=== PATIENT | male | born 1965 | race Caucasian/White ===

== ENCOUNTER 2017-03-10 19:44 | Emergency (ER) | payer BC, OTHER ==
[~2017-03-10] VITALS: Ht 165.1 cm; Wt 70.3 kg
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
--- NOTE | 2017-03-10 19:53 | NUR ---
Dr Haro at bedside.
--- NOTE | 2017-03-10 20:03 | NUR ---
WEIGHT LOSS SALES CONSULTANT AT BEDSIDE TO DRAW BLOOD.
[2017-03-10 20:08] LABS: BASOPHILS % (AUTO) 0.5 % (0.0-2.0); EOSINOPHILS % (AUTO) 0.3 % (0.0-6.0); HEMATOCRIT 46 % (39-51); HEMOGLOBIN 16.2 g/dL (13.5-17.5); LYMPHOCYTES # (AUTO) 1.1 /CMM (0.8-4.8); LYMPHOCYTES % (AUTO) 19.6 % (20.0-44.0); MEAN CORPUSCULAR HEMOGLOBIN 33 PG (26.0-33.0); MEAN CORPUSCULAR HGB CONC 35 g/dl (31.0-36.0); MEAN CORPUSCULAR VOLUME 95 fL (80-96); MONOCYTES # (AUTO) 0.4 /CMM (0.1-1.30); NEUTROPHILS # (AUTO) 4.1 /CMM (1.8-8.9); NEUTROPHILS % (AUTO) 72.6 % (43.0-81.0); PLATELET COUNT (AUTO) 159 /CMM (150-450); RDW COEFFICIENT OF VARIATION 14.7 (11.5-15.0); RED BLOOD CELL COUNT(AUTO) 4.85 MIL/uL (4.5-6.0); WHITE BLOOD COUNT (AUTO) 5.6 K/uL (4.3-11.0)
[2017-03-10 20:29] LABS: ALANINE AMINOTRANSFERASE 140 U/L (12-78); ALBUMIN 3.8 g/dL (3.4-5.0); ALCOHOL, BLOOD 440 mg/dL (0-0); ALKALINE PHOSPHATASE 66 U/L (46-116); ASPARTATE AMINOTRANSFERASE 224 U/L (15-37); BILIRUBIN,DIRECT 0.3 mg/dL (0.0-0.2); CARBON DIOXIDE 28 mmol/L (21-32); CHLORIDE 99 mmol/L (98-107); CREATININE 0.6 mg/dL (0.6-1.3); GLUCOSE 178 mg/dL (74-106); POTASSIUM 3.6 mmol/L (3.5-5.1); SODIUM SERUM 138 mmol/L (136-145); TOTAL PROTEIN, SERUM 7.5 g/dL (6.4-8.2); UREA NITROGEN, BLOOD 8 mg/dL (7-18)
[2017-03-10 20:37] LABS: ACETAMINOPHEN < 2 ug/ml (10-30); SALICYLATE < 2.8 mg/dL (2.8-20.0)
[2017-03-10 20:40] LABS: APPEARANCE,URINE Clear (CLEAR); BILIRUBIN,URINE Negative (NEGATIVE); BLOOD, URINE Trace-intact Ery/uL (NEGATIVE); COLOR,URINE Light yellow (YELLOW); KETONES,URINE Negative (NEGATIVE); LEUKOCYTE ESTERASE ,URINE Negative (NEGATIVE); NITRITE, URINE Negative (NEGATIVE); PH,URINE 5.5 (5.0-8.0); PROTEIN,URINE Negative (NEGATIVE); UGLUCOSE Negative (NEGATIVE); UROBILINOGEN,URINE 0.2 EU/dL (0.2)
[2017-03-10 21:12] LABS: RBC,URINE 2-3/HPF /HPF (0-2); WBC,URINE 1-2/HPF /HPF (0-3)
[2017-03-10 21:13] LABS: BACTERIA,URINE None seen /HPF (None Seen); MUCUS,URINE Rare /LPF (None Seen); SQUAMOUS EPITHELIAL CELL,UR Rare /HPF (None Seen)
--- NOTE | 2017-03-10 21:45 | NUR ---
SISTER AT BEDSIDE TALKING TO PATIENT.
--- NOTE | 2017-03-11 01:06 | NUR ---
PATIENT REMAINED ALERT AND RESPONSIVE. VSS. NAD NOTED. SAFETY MAINTAINED.
--- NOTE | 2017-03-11 05:47 | NUR ---
POWERHOUSE MECHANIC AT BEDSIDE TO REDRAW BLOOD ALCOHOL AT THIS TIME.
[2017-03-11] MEDS ORDERED: clonazePAM 1 MG TABLET PO ONE (06:00)
[2017-03-11] MEDS ORDERED: clonazePAM 1 MG TABLET ONE (07:53)
--- NOTE | 2017-03-11 08:55 | NUR ---
PT PROVIDED WITH FOOD REQUESTED.
--- NOTE | 2017-03-11 11:59 | NUR ---
CALLED FOR FOOD TRAY
--- NOTE | 2017-03-11 13:30 | NUR ---
Pt. ambulatory with a steady gait.
--- NOTE | 2017-03-11 13:45 | NUR ---
Patient discharged to home in stable condition. Written and verbal after care instructions given. Patient verbalizes understanding of instruction.
--- NOTE | 2017-03-11 13:45 | NUR ---
PT ACCOMPANIED BY SISTER KIARRA FOR DC TO HOME.
[2017-03-11 14:12] VITALS: BP 123/88
== END 2017-03-11 14:13 | disposition home or self-care (01) ==
LOC: ER 19:45
DX: R45.851 Suicidal ideations (principal); F32.9 Major depressive disorder, single episode, unspecified; R79.89 Other specified abnormal findings of blood chemistry; F10.10 Alcohol abuse, uncomplicated; F43.10 Post-traumatic stress disorder, unspecified
CPT/HCPCS: 36415 ×2; 80048; 80076; 80305; 80329; 81001; 85025; 99284; A4606; G0480 ×3; Z7610; 81000-TC

== ENCOUNTER 2017-11-27 21:04 | Emergency (ER) | payer SELFPAY ==
[~2017-11-27] VITALS: Ht 165.1 cm; Wt 67.6 kg
[2017-11-27 22:05] VITALS: BP 121/96
== END 2017-11-28 00:40 | disposition home or self-care (01) ==
LOC: ER 21:09
DX: R60.0 Localized edema (principal); F41.9 Anxiety disorder, unspecified; F32.9 Major depressive disorder, single episode, unspecified; F43.10 Post-traumatic stress disorder, unspecified; Z90.89 Acquired absence of other organs
CPT/HCPCS: 93970; 99284; A4606; Z7610

== ENCOUNTER 2018-08-06 21:06 | Emergency (ER) | payer OTHER ==
[~2018-08-06] VITALS: Ht 165.1 cm; Wt 68.0 kg
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
--- NOTE | 2018-08-06 22:16 | NUR ---
AT THE BED SIDE
--- NOTE | 2018-08-06 22:32 | NUR ---
CALLED RADIOLOGY FOR X.RAY AND CT
--- NOTE | 2018-08-06 22:40 | NUR ---
LEFT FOR CT
[2018-08-06 23:43] VITALS: BP 107/69
--- NOTE | 2018-08-06 23:43 | NUR ---
Patient discharged to home in stable condition. RX & Written and verbal after care instructions given. Patient verbalizes understanding of instruction.
== END 2018-08-06 23:44 | disposition home or self-care (01) ==
LOC: ER 21:07
DX: R42 Dizziness and giddiness (principal); R07.89 Other chest pain; F32.9 Major depressive disorder, single episode, unspecified; F43.10 Post-traumatic stress disorder, unspecified; V49.69XA Unspecified car occupant injured in collision with other motor vehicles in traffic accident, initial encounter; Y93.89 Activity, other specified; Y92.413 State road as the place of occurrence of the external cause; Y99.8 Other external cause status
CPT/HCPCS: 70450-TC; 71100-TC

== ENCOUNTER 2020-03-20 23:56 | Inpatient (IN) | payer OTHER ==
[~2020-03-20] VITALS: Ht 167.6 cm; Wt 77.1 kg
[2020-03-21] VITALS (9 sets, daily range): BP systolic 132–152; BP diastolic 69–91
[2020-03-21] MEDS ORDERED: ONDANSETRON HCL/PF 4 MG/2 ML VIAL IVP ONE (00:30)
[2020-03-21] MEDS ORDERED: IV NS 0.9% 1,000 ML BAG IV ONE (00:30)
[2020-03-21] MEDS ORDERED: ONDANSETRON HCL/PF 4 MG/2 ML VIAL ONE ×2 (00:32→01:46)
[2020-03-21 00:48] LABS: BASOPHILS # (AUTO) 0.1 /CMM (0.0-0.2); BASOPHILS % (AUTO) 0.5 % (0.0-2.0); HEMATOCRIT 47 % (39-51); HEMOGLOBIN 15.1 g/dL (13.5-17.5); LYMPHOCYTES # (AUTO) 0.2 /CMM (0.8-4.8); LYMPHOCYTES % (AUTO) 1.9 % (20.0-44.0); MEAN CORPUSCULAR HGB CONC 32 g/dl (31.0-36.0); MEAN CORPUSCULAR VOLUME 89 fL (80-96); MONOCYTES # (AUTO) 0.6 /CMM (0.1-1.30); MONOCYTES % (AUTO) 5.3 % (2.0-12.0); NEUTROPHILS # (AUTO) 10.6 /CMM (1.8-8.9); NEUTROPHILS % (AUTO) 92.3 % (43.0-81.0); PLATELET COUNT (AUTO) 177 /CMM (150-450); RED BLOOD CELL COUNT(AUTO) 5.28 MIL/uL (4.5-6.0); WHITE BLOOD COUNT (AUTO) 11.5 K/uL (4.3-11.0)
[2020-03-21] MEDS ORDERED: METOCLOPRAMIDE HCL 10 MG/2 ML VIAL ONE (00:55)
[2020-03-21] MEDS ORDERED: METOCLOPRAMIDE HCL 10 MG/2 ML VIAL IV ONE (01:00)
[2020-03-21 01:03] LABS: BILIRUBIN,DIRECT 0.4 mg/dL (0.0-0.2); BILIRUBIN,TOTAL 0.8 mg/dL (0.2-1.0); CREATININE 1.6 mg/dL (0.6-1.3); TOTAL PROTEIN, SERUM 8.5 g/dL (6.4-8.2)
[2020-03-21 01:21] LABS: POTASSIUM 2.6 mmol/L (3.5-5.1)
[2020-03-21] MEDS ORDERED: LIDOCAINE 2% JEL UROJET 10 ML MM ONE (01:28)
[2020-03-21] MEDS ORDERED: POTASSIUM CL. PREMIX PERIPHER. 200 ML ONE (01:47)
[2020-03-21] MEDS: POTASSIUM CL. PREMIX PERIPHER. 50 ML IV SCH ×6 (02:00→23:14)
[2020-03-21] MEDS ORDERED: ONDANSETRON HCL/PF 4 MG/2 ML VIAL IV ONE (02:00)
[2020-03-21] MEDS ORDERED: IV NS 0.9% 1,000 ML IV ONE ×2 (02:00→08:30)
[2020-03-21 02:04] LABS: BILIRUBIN,URINE NEGATIVE (NEGATIVE); COLOR,URINE YELLOW (YELLOW); LEUKOCYTE ESTERASE ,URINE NEGATIVE (NEGATIVE); NITRITE, URINE NEGATIVE (NEGATIVE); PROTEIN,URINE 100 mg/dl (NEGATIVE); UGLUCOSE >=1000 mg/dL (NEGATIVE); UROBILINOGEN,URINE 0.2 EU/dL (0.2)
[2020-03-21 02:16] LABS: BACTERIA,URINE None seen /HPF (None Seen); SQUAMOUS EPITHELIAL CELL,UR Few /HPF (None Seen); URINE AMORPHOUS URATE Few /HPF (None Seen); WBC,URINE 0-2 /HPF (0-3)
[2020-03-21 02:32] LABS: ABG BASE EXCESS -18.5 mmol/L; ABG OXYGEN SATURATION 96.7 % (92.0-98.5); ABG PCO2 22.3 mmHg (35.0-45.0); ABG PH 7.175 (7.350-7.450); COHb 0.7 % (0.5-1.5); MetHb 0.6 % (0.0-1.5); O2Hb 95.4 % (94.0-97.0); SITE, ABG Right Radial; VENT MODE, BG Room Air
[2020-03-21] MEDS ORDERED: MAG HYDROX/AL HYDROX/SIMETH 30 ML UDC PO PRN (06:00)
[2020-03-21] MEDS ORDERED: POTASSIUM CHLORIDE 20 MEQ TAB.PRT.SR PO ONE (06:00)
[2020-03-21] MEDS ORDERED: MAGNESIUM HYDROXIDE 30 ML UDC PO PRN (06:00)
[2020-03-21 06:45] LABS: BASOPHILS % (AUTO) 0.3 % (0.0-2.0); HEMATOCRIT 40 % (39-51); HEMOGLOBIN 13.2 g/dL (13.5-17.5); LYMPHOCYTES # (AUTO) 0.2 /CMM (0.8-4.8); LYMPHOCYTES % (AUTO) 2.5 % (20.0-44.0); MEAN CORPUSCULAR HGB CONC 33 g/dl (31.0-36.0); MEAN CORPUSCULAR VOLUME 88 fL (80-96); MONOCYTES # (AUTO) 0.9 /CMM (0.1-1.30); MONOCYTES % (AUTO) 9.5 % (2.0-12.0); NEUTROPHILS # (AUTO) 7.9 /CMM (1.8-8.9); NEUTROPHILS % (AUTO) 87.7 % (43.0-81.0); PLATELET COUNT (AUTO) 113 /CMM (150-450); RED BLOOD CELL COUNT(AUTO) 4.55 MIL/uL (4.5-6.0)
[2020-03-21 07:18] LABS: ALBUMIN 3.4 g/dL (3.4-5.0); BILIRUBIN,DIRECT 0.6 mg/dL (0.0-0.2); CALCIUM, SERUM 7.5 mg/dL (8.5-10.1); CREATININE 0.9 mg/dL (0.6-1.3); MAGNESIUM 2.5 mg/dL (1.8-2.4); PHOSPHORUS 1.5 mg/dL (2.5-4.9); POTASSIUM 3.5 mmol/L (3.5-5.1); TOTAL PROTEIN, SERUM 7.2 g/dL (6.4-8.2)
[2020-03-21] MEDS ORDERED: ESCI10TA PO (08:02)
[2020-03-21] MEDS ORDERED: DIAZ2TAB3 PO (08:02)
[2020-03-21] MEDS ORDERED: IBUP-1957 PO (08:02)
[2020-03-21] MEDS: MULTIVITAMINS,THERAGRAN 1 UDTAB TABLET PO SCH (08:48)
[2020-03-21] MEDS: THIAMINE HCL 100 MG TABLET PO SCH (08:49)
[2020-03-21] MEDS: LORAZEPAM INJ 2 MG/ML VIAL IV PRN ×2 (08:49→18:06)
[2020-03-21] MEDS: FOLIC ACID 1 MG TABLET PO SCH (08:49)
[2020-03-21] MEDS ORDERED: DEXTROSE 50%-WATER 50 ML DISP.SYRIN IV PRN (09:00)
[2020-03-21] MEDS ORDERED: *INSULIN REGULAR(HUMULIN R)HUM 100 UNIT/ML VIAL SQ PRN (09:00)
[2020-03-21] MEDS ORDERED: IV NS 0.9% 1,000 ML IV PRN (09:00)
[2020-03-21] MEDS: INSULIN REGULAR, HUMAN 100 UNIT/ML 3 ML VIAL SQ PRN ×2 (09:50→13:10)
[2020-03-21] MEDS: BLOOD SUGAR DIAGNOSTIC 1 EACH STRIP IN SCH ×9 (09:51→23:59)
[2020-03-21] MEDS ORDERED: Sodium Phosphate 15 MMOL in IV NS 0.9% 245 ML IV SCH (11:30)
[2020-03-21] MEDS: ONDANSETRON HCL/PF 4 MG/2 ML VIAL IVP PRN (11:58)
[2020-03-21] MEDS ORDERED: IV D5/ 0.9% NACL 1,000 ML IV PRN (14:30)
[2020-03-21] MEDS ORDERED: MISCELLANEOUS MED 1 EA EA XX ONE (14:30)
[2020-03-21] MEDS ORDERED: INSULIN REGULAR, HUMAN 100 UNIT in IV NS 0.9% 99 ML IV PRN ×2 (14:30)
[2020-03-21] MEDS ORDERED: POTASSIUM PHOSPHATE MM 15 MMOL in IV NS 0.9% 250 ML IV SCH (14:30)
[2020-03-21 15:36] LABS: CALCIUM, SERUM 7.7 mg/dL (8.5-10.1); POTASSIUM 2.9 mmol/L (3.5-5.1)
[2020-03-21] MEDS: ESCITALOPRAM OXALATE (10 MG) 10 MG TABLET PO SCH (16:03)
[2020-03-21] MEDS: HYDROCODONE/APAP 5/325MG TABLET PO PRN (19:30)
[2020-03-21 20:39] LABS: ALBUMIN 3.1 g/dL (3.4-5.0); CALCIUM, SERUM 7.5 mg/dL (8.5-10.1); CREATININE 1.1 mg/dL (0.6-1.3); POTASSIUM 2.9 mmol/L (3.5-5.1); TOTAL PROTEIN, SERUM 6.4 g/dL (6.4-8.2)
[2020-03-21] MEDS: ATORVASTATIN 40 MG TABLET PO SCH (22:24)
[2020-03-21] MEDS: Potassium Chloride 40 MEQ in IV D5/ 0.9% NACL 1,000 ML IV PRN (23:08)
[2020-03-22] VITALS (16 sets, daily range): BP systolic 116–143; BP diastolic 66–83
[2020-03-22 00:16] LABS: CALCIUM, SERUM 7.4 mg/dL (8.5-10.1); POTASSIUM 3.2 mmol/L (3.5-5.1)
[2020-03-22] MEDS: POTASSIUM CL. PREMIX PERIPHER. 50 ML IV SCH ×3 (00:19→23:45)
[2020-03-22] MEDS: BLOOD SUGAR DIAGNOSTIC 1 EACH STRIP IN SCH ×22 (01:03→22:51)
[2020-03-22 04:33] LABS: BASOPHILS % (AUTO) 0.2 % (0.0-2.0); HEMATOCRIT 35 % (39-51); HEMOGLOBIN 11.9 g/dL (13.5-17.5); LYMPHOCYTES # (AUTO) 0.4 /CMM (0.8-4.8); LYMPHOCYTES % (AUTO) 6.4 % (20.0-44.0); MEAN CORPUSCULAR HGB CONC 34 g/dl (31.0-36.0); MEAN CORPUSCULAR VOLUME 85 fL (80-96); MONOCYTES # (AUTO) 0.6 /CMM (0.1-1.30); MONOCYTES % (AUTO) 11.2 % (2.0-12.0); NEUTROPHILS # (AUTO) 4.5 /CMM (1.8-8.9); NEUTROPHILS % (AUTO) 82.2 % (43.0-81.0); PLATELET COUNT (AUTO) 75 /CMM (150-450); RED BLOOD CELL COUNT(AUTO) 4.16 MIL/uL (4.5-6.0); WHITE BLOOD COUNT (AUTO) 5.5 K/uL (4.3-11.0)
[2020-03-22 04:55] LABS: CALCIUM, SERUM 7.8 mg/dL (8.5-10.1); POTASSIUM 3.2 mmol/L (3.5-5.1)
[2020-03-22 04:58] LABS: PHOSPHORUS 0.6 mg/dL (2.5-4.9)
[2020-03-22 06:15] LABS: BAND % (MANUAL) 5 % (0.0-5.0); NEUTROPHILS % (MANUAL) 75 (42-76)
[2020-03-22 06:16] LABS: LYMPHOCYTES % (MANUAL) 7 % (16-48); MONOCYTES % (MANUAL) 13 % (0-11.0)
[2020-03-22] MEDS ORDERED: POTASSIUM PHOSPHATE MM 15 MMOL in IV NS 0.9% 250 ML IV SCH ×2 (07:00→21:00)
[2020-03-22] MEDS ORDERED: POTASSIUM PHOSPHATE MM 7.5 MMOL in IV NS 0.9% 100 ML IV SCH (08:30)
[2020-03-22] MEDS: POTASSIUM PHOSPHATE MM 7.5 MMOL in IV NS 0.9% 100 ML IV SCH ×3 (08:56→21:25)
[2020-03-22] MEDS: THIAMINE HCL 100 MG TABLET PO SCH (09:19)
[2020-03-22] MEDS: LORAZEPAM INJ 2 MG/ML VIAL IV PRN ×3 (09:19→21:25)
[2020-03-22] MEDS: MULTIVITAMINS,THERAGRAN 1 UDTAB TABLET PO SCH (09:19)
[2020-03-22] MEDS: FOLIC ACID 1 MG TABLET PO SCH (09:19)
[2020-03-22] MEDS: ESCITALOPRAM OXALATE (10 MG) 10 MG TABLET PO SCH (09:19)
[2020-03-22 09:54] LABS: CALCIUM, SERUM 7.8 mg/dL (8.5-10.1); CREATININE 0.9 mg/dL (0.6-1.3); POTASSIUM 3.2 mmol/L (3.5-5.1)
[2020-03-22] MEDS: Potassium Chloride 40 MEQ in IV D5/ 0.9% NACL 1,000 ML IV PRN ×2 (11:20→21:43)
[2020-03-22] MEDS ORDERED: MENTHOL/CETYLPYRD (CEPACOL) 1 LOZ LOZENGE PO PRN (11:30)
[2020-03-22 16:04] LABS: CALCIUM, SERUM 7.8 mg/dL (8.5-10.1); POTASSIUM 3.3 mmol/L (3.5-5.1)
[2020-03-22 17:24] LABS: CALCIUM, SERUM 7.5 mg/dL (8.5-10.1); CREATININE 0.9 mg/dL (0.6-1.3); POTASSIUM 2.9 mmol/L (3.5-5.1)
[2020-03-22] MEDS: ARIPIPRAZOLE 5 MG TABLET PO SCH (21:26)
[2020-03-22] MEDS: ATORVASTATIN 40 MG TABLET PO SCH (21:26)
[2020-03-22 21:44] LABS: CALCIUM, SERUM 7.7 mg/dL (8.5-10.1); CREATININE 0.8 mg/dL (0.6-1.3)
[2020-03-22 21:52] LABS: POTASSIUM 2.7 mmol/L (3.5-5.1)
[2020-03-22] MEDS ORDERED: DEXTROSE 50%-WATER 50 ML DISP.SYRIN IV PRN (23:30)
[2020-03-22] MEDS: INSULIN GLARGINE, 100 UNIT/ML CARTRIDGE SQ SCH (23:43)
[2020-03-23] VITALS (9 sets, daily range): BP systolic 120–146; BP diastolic 73–95
[2020-03-23] MEDS: POTASSIUM PHOSPHATE MM 7.5 MMOL in IV NS 0.9% 100 ML IV SCH (00:48)
[2020-03-23] MEDS: MORPHINE SULFATE INJ 2 MG/ML DISP.SYRIN IV PRN (01:00)
[2020-03-23] MEDS: POTASSIUM CL. PREMIX PERIPHER. 50 ML IV SCH (01:07)
[2020-03-23] MEDS: LORAZEPAM INJ 2 MG/ML VIAL IV PRN ×3 (05:58→21:50)
[2020-03-23 06:45] LABS: BASOPHILS % (AUTO) 0.2 % (0.0-2.0); EOSINOPHILS % (AUTO) 0.2 % (0.0-6.0); HEMATOCRIT 36 % (39-51); HEMOGLOBIN 12.3 g/dL (13.5-17.5); LYMPHOCYTES # (AUTO) 0.5 /CMM (0.8-4.8); LYMPHOCYTES % (AUTO) 9.4 % (20.0-44.0); MEAN CORPUSCULAR HGB CONC 34 g/dl (31.0-36.0); MEAN CORPUSCULAR VOLUME 85 fL (80-96); MONOCYTES # (AUTO) 0.5 /CMM (0.1-1.30); MONOCYTES % (AUTO) 10.8 % (2.0-12.0); NEUTROPHILS % (AUTO) 79.4 % (43.0-81.0); PLATELET COUNT (AUTO) 65 /CMM (150-450); RED BLOOD CELL COUNT(AUTO) 4.25 MIL/uL (4.5-6.0)
[2020-03-23 07:15] LABS: CALCIUM, SERUM 7.8 mg/dL (8.5-10.1); CREATININE 0.8 mg/dL (0.6-1.3); MAGNESIUM 1.9 mg/dL (1.8-2.4); PHOSPHORUS 1.5 mg/dL (2.5-4.9); POTASSIUM 2.9 mmol/L (3.5-5.1)
[2020-03-23] MEDS: THIAMINE HCL 100 MG TABLET PO SCH (08:11)
[2020-03-23] MEDS: ESCITALOPRAM OXALATE (10 MG) 10 MG TABLET PO SCH (08:11)
[2020-03-23] MEDS: FOLIC ACID 1 MG TABLET PO SCH (08:11)
[2020-03-23] MEDS: BLOOD SUGAR DIAGNOSTIC 1 EACH STRIP VI SCH ×4 (08:11→22:08)
[2020-03-23] MEDS: MULTIVITAMINS,THERAGRAN 1 UDTAB TABLET PO SCH (08:11)
[2020-03-23] MEDS: ONDANSETRON HCL/PF 4 MG/2 ML VIAL IVP PRN ×2 (08:12→14:36)
[2020-03-23] MEDS: INSULIN REGULAR, HUMAN 100 UNIT/ML 3 ML VIAL SQ PRN ×3 (08:38→17:38)
[2020-03-23] MEDS: Potassium Chloride 40 MEQ in IV D5/ 0.9% NACL 1,000 ML IV PRN (10:53)
[2020-03-23] MEDS ORDERED: POTASSIUM CHLORIDE 20 MEQ POWDER PACKET PO ONE (12:30)
[2020-03-23] MEDS: IV NS 0.9% 1,000 ML IV PRN (12:30)
[2020-03-23] MEDS ORDERED: NEUTRA PHOS 1 POWD.PACKET PO ONE (12:30)
[2020-03-23] MEDS: CHLORDIAZEPOXIDE HCL 25 MG CAPSULE PO SCH ×2 (13:11→21:47)
[2020-03-23] MEDS: ARIPIPRAZOLE 5 MG TABLET PO SCH (21:47)
[2020-03-23] MEDS: ATORVASTATIN 40 MG TABLET PO SCH (21:47)
[2020-03-23] MEDS: INSULIN GLARGINE, 100 UNIT/ML CARTRIDGE SQ SCH (21:52)
[2020-03-23] MEDS: *INSULIN REGULAR(HUMULIN R)HUM 100 UNIT/ML VIAL SQ PRN (21:53)
[2020-03-24] MEDS: LORAZEPAM INJ 2 MG/ML VIAL IV PRN ×2 (02:23→14:30)
[2020-03-24 04:00] VITALS: BP 132/85
[2020-03-24] MEDS: CHLORDIAZEPOXIDE HCL 25 MG CAPSULE PO SCH ×3 (04:13→21:31)
[2020-03-24 06:37] LABS: BASOPHILS % (AUTO) 0.1 % (0.0-2.0); EOSINOPHILS % (AUTO) 1.3 % (0.0-6.0); HEMATOCRIT 40 % (39-51); HEMOGLOBIN 13.3 g/dL (13.5-17.5); LYMPHOCYTES # (AUTO) 0.6 /CMM (0.8-4.8); LYMPHOCYTES % (AUTO) 10.5 % (20.0-44.0); MEAN CORPUSCULAR HGB CONC 34 g/dl (31.0-36.0); MEAN CORPUSCULAR VOLUME 86 fL (80-96); MONOCYTES # (AUTO) 0.7 /CMM (0.1-1.30); MONOCYTES % (AUTO) 12.4 % (2.0-12.0); NEUTROPHILS # (AUTO) 4.2 /CMM (1.8-8.9); NEUTROPHILS % (AUTO) 75.7 % (43.0-81.0); PLATELET COUNT (AUTO) 84 /CMM (150-450); RED BLOOD CELL COUNT(AUTO) 4.61 MIL/uL (4.5-6.0); WHITE BLOOD COUNT (AUTO) 5.5 K/uL (4.3-11.0)
[2020-03-24 06:57] LABS: CALCIUM, SERUM 8.3 mg/dL (8.5-10.1); CREATININE 0.6 mg/dL (0.6-1.3); MAGNESIUM 1.9 mg/dL (1.8-2.4); PHOSPHORUS 1.7 mg/dL (2.5-4.9)
[2020-03-24 07:06] LABS: POTASSIUM 2.5 mmol/L (3.5-5.1)
[2020-03-24] MEDS: BLOOD SUGAR DIAGNOSTIC 1 EACH STRIP VI SCH ×4 (07:30→22:17)
[2020-03-24 08:00] VITALS: BP 139/92
[2020-03-24] MEDS: ESCITALOPRAM OXALATE (10 MG) 10 MG TABLET PO SCH (08:31)
[2020-03-24] MEDS: THIAMINE HCL 100 MG TABLET PO SCH (08:31)
[2020-03-24] MEDS: MULTIVITAMINS,THERAGRAN 1 UDTAB TABLET PO SCH (08:31)
[2020-03-24] MEDS: FOLIC ACID 1 MG TABLET PO SCH (08:31)
[2020-03-24] MEDS: POTASSIUM PHOSPHATE MM 7.5 MMOL in IV NS 0.9% 100 ML IV SCH ×2 (08:32→11:51)
[2020-03-24] MEDS: IV NS 0.9% 1,000 ML IV PRN (08:33)
[2020-03-24] MEDS: INSULIN REGULAR, HUMAN 100 UNIT/ML 3 ML VIAL SQ PRN (09:00)
[2020-03-24] MEDS ORDERED: ATOR40TA PO (10:20)
[2020-03-24] MEDS ORDERED: ARIP5TAB10 PO (10:20)
[2020-03-24] MEDS: *INSULIN REGULAR(HUMULIN R)HUM 100 UNIT/ML VIAL SQ PRN ×3 (14:31→22:22)
[2020-03-24 14:59] VITALS: BP 134/92
[2020-03-24 20:00] VITALS: BP 143/86
[2020-03-24] MEDS: ATORVASTATIN 40 MG TABLET PO SCH (21:32)
[2020-03-24] MEDS: ARIPIPRAZOLE 5 MG TABLET PO SCH (21:32)
[2020-03-24] MEDS: INSULIN GLARGINE, 100 UNIT/ML CARTRIDGE SQ SCH (22:21)
[2020-03-25] MEDS: IV NS 0.9% 1,000 ML IV PRN ×2 (00:23→12:52)
[2020-03-25] MEDS: LORAZEPAM INJ 2 MG/ML VIAL IV PRN (00:25)
[2020-03-25 04:00] VITALS: BP 113/71
[2020-03-25] MEDS: CHLORDIAZEPOXIDE HCL 25 MG CAPSULE PO SCH ×3 (05:51→21:46)
[2020-03-25 08:00] VITALS: BP 140/87
[2020-03-25] MEDS: THIAMINE HCL 100 MG TABLET PO SCH (08:47)
[2020-03-25] MEDS: BLOOD SUGAR DIAGNOSTIC 1 EACH STRIP VI SCH ×4 (08:47→21:46)
[2020-03-25] MEDS: MULTIVITAMINS,THERAGRAN 1 UDTAB TABLET PO SCH (08:47)
[2020-03-25] MEDS: ESCITALOPRAM OXALATE (10 MG) 10 MG TABLET PO SCH (08:47)
[2020-03-25] MEDS: FOLIC ACID 1 MG TABLET PO SCH (08:47)
[2020-03-25] MEDS: INSULIN REGULAR, HUMAN 100 UNIT/ML 3 ML VIAL SQ PRN (08:54)
[2020-03-25] MEDS: *INSULIN REGULAR(HUMULIN R)HUM 100 UNIT/ML VIAL SQ PRN ×3 (12:48→22:04)
[2020-03-25] MEDS: ONDANSETRON HCL/PF 4 MG/2 ML VIAL IVP PRN (13:28)
[2020-03-25 15:47] LABS: CALCIUM, SERUM 8.3 mg/dL (8.5-10.1); CREATININE 0.7 mg/dL (0.6-1.3)
[2020-03-25 15:56] LABS: POTASSIUM 2.3 mmol/L (3.5-5.1)
[2020-03-25 16:00] VITALS: BP 129/91
[2020-03-25] MEDS ORDERED: POTASSIUM CHLORIDE 20 MEQ TAB.PRT.SR PO ONE (17:00)
[2020-03-25 20:00] VITALS: BP 127/96
[2020-03-25] MEDS: ATORVASTATIN 40 MG TABLET PO SCH (21:46)
[2020-03-25] MEDS: ARIPIPRAZOLE 5 MG TABLET PO SCH (21:46)
[2020-03-25] MEDS: INSULIN GLARGINE, 100 UNIT/ML CARTRIDGE SQ SCH (22:03)
[2020-03-26] MEDS: HYDROCODONE/APAP 5/325MG TABLET PO PRN (01:22)
[2020-03-26] MEDS: CHLORDIAZEPOXIDE HCL 25 MG CAPSULE PO SCH ×3 (05:49→21:53)
[2020-03-26] MEDS: INSULIN REGULAR, HUMAN 100 UNIT/ML 3 ML VIAL SQ PRN (06:44)
[2020-03-26] MEDS: BLOOD SUGAR DIAGNOSTIC 1 EACH STRIP VI SCH ×4 (06:45→23:15)
[2020-03-26 08:00] VITALS: BP 119/82
[2020-03-26] MEDS: ACETAMINOPHEN 325 MG TABLET PO PRN ×2 (08:23→17:50)
[2020-03-26] MEDS: ESCITALOPRAM OXALATE (10 MG) 10 MG TABLET PO SCH (08:23)
[2020-03-26] MEDS: MULTIVITAMINS,THERAGRAN 1 UDTAB TABLET PO SCH (08:23)
[2020-03-26] MEDS: THIAMINE HCL 100 MG TABLET PO SCH (08:23)
[2020-03-26] MEDS: FOLIC ACID 1 MG TABLET PO SCH (08:23)
[2020-03-26 10:35] LABS: CALCIUM, SERUM 7.9 mg/dL (8.5-10.1); CREATININE 0.7 mg/dL (0.6-1.3)
[2020-03-26 10:42] LABS: POTASSIUM 2.8 mmol/L (3.5-5.1)
[2020-03-26 12:00] VITALS: BP 105/75
[2020-03-26] MEDS ORDERED: POTASSIUM CHLORIDE 20 MEQ TAB.PRT.SR PO ONE (12:00)
[2020-03-26] MEDS: *INSULIN REGULAR(HUMULIN R)HUM 100 UNIT/ML VIAL SQ PRN ×3 (13:17→23:30)
[2020-03-26 16:00] VITALS: BP 106/65
[2020-03-26 20:30] VITALS: BP 109/77
[2020-03-26] MEDS: ATORVASTATIN 40 MG TABLET PO SCH (21:53)
[2020-03-26] MEDS: ARIPIPRAZOLE 5 MG TABLET PO SCH (21:53)
[2020-03-26] MEDS: INSULIN GLARGINE, 100 UNIT/ML CARTRIDGE SQ SCH (23:24)
[2020-03-27] MEDS: ACETAMINOPHEN 325 MG TABLET PO PRN ×2 (02:30→16:05)
[2020-03-27] MEDS: CHLORDIAZEPOXIDE HCL 25 MG CAPSULE PO SCH ×3 (05:32→22:14)
[2020-03-27] MEDS: BLOOD SUGAR DIAGNOSTIC 1 EACH STRIP VI SCH ×4 (06:44→22:15)
[2020-03-27 07:39] LABS: BASOPHILS % (AUTO) 0.3 % (0.0-2.0); EOSINOPHILS % (AUTO) 0.4 % (0.0-6.0); HEMATOCRIT 40 % (39-51); HEMOGLOBIN 13.3 g/dL (13.5-17.5); LYMPHOCYTES # (AUTO) 0.7 /CMM (0.8-4.8); LYMPHOCYTES % (AUTO) 7.6 % (20.0-44.0); MEAN CORPUSCULAR HGB CONC 34 g/dl (31.0-36.0); MEAN CORPUSCULAR VOLUME 85 fL (80-96); MONOCYTES % (AUTO) 21.3 % (2.0-12.0); NEUTROPHILS # (AUTO) 6.6 /CMM (1.8-8.9); NEUTROPHILS % (AUTO) 70.4 % (43.0-81.0); PLATELET COUNT (AUTO) 146 /CMM (150-450); RED BLOOD CELL COUNT(AUTO) 4.66 MIL/uL (4.5-6.0); WHITE BLOOD COUNT (AUTO) 9.4 K/uL (4.3-11.0)
[2020-03-27] MEDS: *INSULIN REGULAR(HUMULIN R)HUM 100 UNIT/ML VIAL SQ PRN ×2 (07:58→22:21)
[2020-03-27 07:59] LABS: CALCIUM, SERUM 8.5 mg/dL (8.5-10.1); CREATININE 0.8 mg/dL (0.6-1.3); POTASSIUM 3.4 mmol/L (3.5-5.1)
[2020-03-27 08:00] VITALS: BP 106/65
[2020-03-27] MEDS: THIAMINE HCL 100 MG TABLET PO SCH (08:04)
[2020-03-27] MEDS: ESCITALOPRAM OXALATE (10 MG) 10 MG TABLET PO SCH (08:04)
[2020-03-27] MEDS: FOLIC ACID 1 MG TABLET PO SCH (08:04)
[2020-03-27] MEDS: MULTIVITAMINS,THERAGRAN 1 UDTAB TABLET PO SCH (08:07)
[2020-03-27] MEDS: HYDROCODONE/APAP 5/325MG TABLET PO PRN ×2 (08:41→22:36)
[2020-03-27] MEDS ORDERED: POTASSIUM CHLORIDE 20 MEQ TAB.PRT.SR PO ONE (10:00)
[2020-03-27 10:54] LABS: BAND % (MANUAL) 6 % (0.0-5.0); EOSINOPHILS % (MANUAL) 2 % (0-4); LYMPHOCYTES % (MANUAL) 14 % (16-48); METAMYELOCYTES % 1 % (0-0); MONOCYTES % (MANUAL) 16 % (0-11.0); MYELOCYTES % 1 % (0-0); NEUTROPHILS % (MANUAL) 60 (42-76)
[2020-03-27 16:00] VITALS: BP 103/62
[2020-03-27] MEDS: LEVOFLOXACIN 750 MG /D5W 150ML 750 MG in PREMIX 1 EA IV SCH (19:12)
[2020-03-27 20:00] VITALS: BP 91/59
[2020-03-27] MEDS: ATORVASTATIN 40 MG TABLET PO SCH (22:14)
[2020-03-27] MEDS: ARIPIPRAZOLE 5 MG TABLET PO SCH (22:15)
[2020-03-27] MEDS: INSULIN GLARGINE, 100 UNIT/ML CARTRIDGE SQ SCH (22:18)
[2020-03-28] MEDS: HYDROCODONE/APAP 5/325MG TABLET PO PRN (04:48)
[2020-03-28] MEDS: CHLORDIAZEPOXIDE HCL 25 MG CAPSULE PO SCH ×3 (05:03→20:55)
[2020-03-28] MEDS: INSULIN REGULAR, HUMAN 100 UNIT/ML 3 ML VIAL SQ PRN ×3 (06:56→17:20)
[2020-03-28 07:24] LABS: CALCIUM, SERUM 8.2 mg/dL (8.5-10.1); CREATININE 0.8 mg/dL (0.6-1.3); POTASSIUM 3.4 mmol/L (3.5-5.1)
[2020-03-28] MEDS: BLOOD SUGAR DIAGNOSTIC 1 EACH STRIP VI SCH ×4 (07:30→21:42)
[2020-03-28] MEDS: MULTIVITAMINS,THERAGRAN 1 UDTAB TABLET PO SCH (08:04)
[2020-03-28] MEDS: ESCITALOPRAM OXALATE (10 MG) 10 MG TABLET PO SCH (08:04)
[2020-03-28] MEDS: THIAMINE HCL 100 MG TABLET PO SCH (08:04)
[2020-03-28] MEDS: FOLIC ACID 1 MG TABLET PO SCH (08:04)
[2020-03-28 08:15] VITALS: BP 100/66
[2020-03-28] MEDS ORDERED: POTASSIUM CHLORIDE 20 MEQ TAB.PRT.SR PO SCH (09:30)
[2020-03-28] MEDS: LORAZEPAM INJ 2 MG/ML VIAL IV PRN (10:23)
[2020-03-28] MEDS ORDERED: LEVO750T46 PO (12:10)
[2020-03-28] MEDS ORDERED: Folic Acid PO (12:10)
[2020-03-28] MEDS ORDERED: Thiamine HCL PO (12:10)
[2020-03-28] MEDS ORDERED: Insulin Glargine,Hum SQ (12:10)
[2020-03-28] MEDS ORDERED: INSU100I30 SQ (12:11)
[2020-03-28] MEDS: ACETAMINOPHEN 325 MG TABLET PO PRN (15:53)
[2020-03-28 15:56] VITALS: BP 108/72
[2020-03-28] MEDS: LEVOFLOXACIN 750 MG /D5W 150ML 750 MG in PREMIX 1 EA IV SCH (17:20)
[2020-03-28] MEDS: MORPHINE SULFATE INJ 2 MG/ML DISP.SYRIN IV PRN ×3 (17:50→22:41)
[2020-03-28 20:00] VITALS: BP 100/67
[2020-03-28] MEDS: INSULIN GLARGINE, 100 UNIT/ML CARTRIDGE SQ SCH (21:38)
[2020-03-28] MEDS: ARIPIPRAZOLE 5 MG TABLET PO SCH (21:41)
[2020-03-28] MEDS: *INSULIN REGULAR(HUMULIN R)HUM 100 UNIT/ML VIAL SQ PRN (21:41)
[2020-03-28] MEDS: ATORVASTATIN 40 MG TABLET PO SCH (21:41)
[2020-03-29] MEDS: CHLORDIAZEPOXIDE HCL 25 MG CAPSULE PO SCH ×2 (05:08→12:29)
[2020-03-29] MEDS: BLOOD SUGAR DIAGNOSTIC 1 EACH STRIP VI SCH ×2 (06:58→12:29)
[2020-03-29] MEDS: INSULIN REGULAR, HUMAN 100 UNIT/ML 3 ML VIAL SQ PRN ×2 (07:01→12:26)
[2020-03-29] MEDS: MORPHINE SULFATE INJ 2 MG/ML DISP.SYRIN IV PRN (07:02)
[2020-03-29 08:00] VITALS: BP 96/69
[2020-03-29 08:27] LABS: CALCIUM, SERUM 8.3 mg/dL (8.5-10.1); CREATININE 0.7 mg/dL (0.6-1.3); POTASSIUM 3.6 mmol/L (3.5-5.1)
[2020-03-29] MEDS: ESCITALOPRAM OXALATE (10 MG) 10 MG TABLET PO SCH (08:32)
[2020-03-29] MEDS: FOLIC ACID 1 MG TABLET PO SCH (08:32)
[2020-03-29] MEDS: MULTIVITAMINS,THERAGRAN 1 UDTAB TABLET PO SCH (08:32)
[2020-03-29] MEDS: THIAMINE HCL 100 MG TABLET PO SCH (08:32)
[2020-03-29] MEDS ORDERED: glucose strips (12:03)
[2020-03-29] MEDS ORDERED: [UNRECOGNIZED DRUG - CODE] MC (12:03)
[2020-03-29] MEDS ORDERED: BLOO1EAC70 MC (12:03)
[2020-03-29] MEDS ORDERED: INSU100V SQ (12:03)
[2020-03-29] MEDS ORDERED: SYRI1DIS86 MC (12:10)
[2020-03-29] MEDS: LORAZEPAM INJ 2 MG/ML VIAL IV PRN (12:29)
[2020-03-29 16:00] VITALS: BP 146/100
== END 2020-03-29 13:00 | disposition home or self-care (01) | DRG 775 ==
LOC: ER 23:59 → TELE 03-21 06:00 → MED 03-21 11:44 → ICU 03-21 15:23 → ICUOV 03-22 13:45 → MEDSG1 03-23 12:26 → MED 03-25 07:33
PROVIDERS: ADMIT Nurse Practitioner Acute Care; ATTEND Nurse Practitioner Acute Care
PROC: 05HA33Z Insertion of Infusion Device into Left Brachial Vein, Percutaneous Approach (ICD-10-PCS; principal; 2020-03-23)
DX: F10.239 Alcohol dependence with withdrawal, unspecified (principal); E11.10 Type 2 diabetes mellitus with ketoacidosis without coma; N17.0 Acute kidney failure with tubular necrosis; E87.2 Acidosis; Y90.8 Blood alcohol level of 240 mg/100 ml or more; F43.10 Post-traumatic stress disorder, unspecified; E87.1 Hypo-osmolality and hyponatremia; E11.65 Type 2 diabetes mellitus with hyperglycemia; J69.0 Pneumonitis due to inhalation of food and vomit; X58.XXXA Exposure to other specified factors, initial encounter; Y92.9 Unspecified place or not applicable; E86.1 Hypovolemia; E87.6 Hypokalemia; E78.5 Hyperlipidemia, unspecified; Z98.1 Arthrodesis status; F33.2 Major depressive disorder, recurrent severe without psychotic features
CPT/HCPCS: 36415; 36600; 71045-TC; 80048-TC; 80053-TC; 80061-TC; 80076-TC; 81001; 82803-TC; 82962-TC; 83690-TC; 83735-TC; 84100-TC; 85025-TC; 85730-TC; 87040-TC; 87081-TC; A4216; A9563; C9803; G0378; G0480; J1815; J1956; J2060; J2270; J2405; J2765; J3480; J3490; J7030; J7042; J7050

== ENCOUNTER 2020-04-24 04:59 | Emergency (ER) | payer OTHER ==
[~2020-04-24] VITALS: Ht 167.6 cm; Wt 74.8 kg
[~2020-04-24 04:59] MED LIST: ARIP5TAB10 PO; ATOR40TA PO; BLOO1EAC70 MC; ESCI10TA PO; Folic Acid PO; INSU100I30 SQ; INSU100V SQ; Insulin Glargine,Hum SQ; LEVO750T46 PO; SYRI1DIS86 MC; Thiamine HCL PO; [UNRECOGNIZED DRUG - CODE] MC; glucose strips
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
--- NOTE | 2020-04-24 05:15 | NUR ---
LINE ESTABLISHED LH 18G, BLOOD WORK COLLECTED, SENT TO LAB.
[2020-04-24] MEDS ORDERED: ONDANSETRON HCL/PF 4 MG/2 ML VIAL ONE (05:29)
[2020-04-24] MEDS ORDERED: IV NS 0.9% 1,000 ML BAG IV ONE (05:30)
[2020-04-24] MEDS ORDERED: ONDANSETRON HCL/PF 4 MG/2 ML VIAL IVP ONE (05:30)
[2020-04-24 05:42] LABS: BASOPHILS % (AUTO) 0.8 % (0.0-2.0); EOSINOPHILS % (AUTO) 0.4 % (0.0-6.0); HEMATOCRIT 43 % (39-51); HEMOGLOBIN 14.4 g/dL (13.5-17.5); LYMPHOCYTES # (AUTO) 1.2 /CMM (0.8-4.8); LYMPHOCYTES % (AUTO) 24.8 % (20.0-44.0); MEAN CORPUSCULAR HGB CONC 34 g/dl (31.0-36.0); MEAN CORPUSCULAR VOLUME 88 fL (80-96); MONOCYTES # (AUTO) 0.3 /CMM (0.1-1.30); MONOCYTES % (AUTO) 7.5 % (2.0-12.0); NEUTROPHILS # (AUTO) 3.1 /CMM (1.8-8.9); NEUTROPHILS % (AUTO) 66.5 % (43.0-81.0); PLATELET COUNT (AUTO) 176 /CMM (150-450); RED BLOOD CELL COUNT(AUTO) 4.85 MIL/uL (4.5-6.0); WHITE BLOOD COUNT (AUTO) 4.7 K/uL (4.3-11.0)
--- NOTE | 2020-04-24 05:53 | NUR ---
AMBULATED TO THE RESTROOM TO PROVIDE URINE SAMPLE
[2020-04-24 05:55] LABS: ALBUMIN 4.2 g/dL (3.4-5.0); BILIRUBIN,DIRECT 0.2 mg/dL (0.0-0.2); BILIRUBIN,TOTAL 0.6 mg/dL (0.2-1.0); CALCIUM, SERUM 8.6 mg/dL (8.5-10.1); CREATININE 0.8 mg/dL (0.6-1.3); POTASSIUM 3.4 mmol/L (3.5-5.1); TOTAL PROTEIN, SERUM 8.2 g/dL (6.4-8.2)
[2020-04-24] MEDS ORDERED: ARIP5TAB10 PO (06:16)
[2020-04-24] MEDS ORDERED: ESCI20TA PO (06:16)
[2020-04-24 06:18] LABS: COLOR,URINE YELLOW (YELLOW); PROTEIN,URINE 100 mg/dl (NEGATIVE); UGLUCOSE >=1000 mg/dL (NEGATIVE)
[2020-04-24 06:19] LABS: BILIRUBIN,URINE NEGATIVE (NEGATIVE); LEUKOCYTE ESTERASE ,URINE NEGATIVE (NEGATIVE); NITRITE, URINE NEGATIVE (NEGATIVE); UROBILINOGEN,URINE 0.2 EU/dL (0.2)
--- NOTE | 2020-04-24 06:35 | NUR ---
Patient discharged to home in stable condition. Written and verbal after care instructions given. Patient verbalizes understanding of instruction and RX. Pt ambulated out of ED. VSS.
--- NOTE | 2020-04-24 06:35 | NUR ---
IV removed. Catheter intact and site benign. Pressure and 4x4 applied to site. No bleeding noted.
[2020-04-24 06:36] VITALS: BP 121/73
[2020-04-24 07:19] LABS: BACTERIA,URINE None seen /HPF (None Seen); RBC,URINE 0-2 /HPF (0-2); SQUAMOUS EPITHELIAL CELL,UR Rare /HPF (None Seen); WBC,URINE 0-2 /HPF (0-3)
== END 2020-04-24 06:37 | disposition home or self-care (01) ==
LOC: ER 05:01
DX: F10.10 Alcohol abuse, uncomplicated (principal); F32.9 Major depressive disorder, single episode, unspecified; E11.9 Type 2 diabetes mellitus without complications; R00.0 Tachycardia, unspecified; Y90.6 Blood alcohol level of 120-199 mg/100 ml; Z79.4 Long term (current) use of insulin; Z79.899 Other long term (current) drug therapy
CPT/HCPCS: 36415; 80048; 80076; 80299; 80307; 80320; 81001; 82962; 83690; 85025; 93005; 96361; 96374; 99284; J2405; J7030; G0480

== ENCOUNTER 2020-04-25 18:23 | Emergency (ER) | payer OTHER ==
[~2020-04-25] VITALS: Ht 167.6 cm; Wt 74.8 kg
[~2020-04-25 18:23] MED LIST changes: +ESCI20TA PO
[2020-04-25 19:08] LABS: BASOPHILS % (AUTO) 0.7 % (0.0-2.0); EOSINOPHILS % (AUTO) 0.2 % (0.0-6.0); HEMATOCRIT 42 % (39-51); HEMOGLOBIN 14.4 g/dL (13.5-17.5); LYMPHOCYTES % (AUTO) 16.3 % (20.0-44.0); MEAN CORPUSCULAR HGB CONC 34 g/dl (31.0-36.0); MEAN CORPUSCULAR VOLUME 88 fL (80-96); MONOCYTES # (AUTO) 0.4 /CMM (0.1-1.30); MONOCYTES % (AUTO) 7.5 % (2.0-12.0); NEUTROPHILS # (AUTO) 4.4 /CMM (1.8-8.9); NEUTROPHILS % (AUTO) 75.3 % (43.0-81.0); PLATELET COUNT (AUTO) 186 /CMM (150-450); RED BLOOD CELL COUNT(AUTO) 4.81 MIL/uL (4.5-6.0); WHITE BLOOD COUNT (AUTO) 5.9 K/uL (4.3-11.0)
--- NOTE | 2020-04-25 19:13 | NUR ---
C/O SUICIDAL IDEATION PLAN IS TO DRINK HIMSELF TO . PT AAOX4, VSS. RR EVEN & UNLABORED. DENIES CP, SOB, DIZZINESS, N/V AT THIS TIME. PT SEEN & EVAL'D BY DR. DENNIS. WILL CONT TO MONITOR.
--- NOTE | 2020-04-25 19:33 | NUR ---
URINE COLLECTED AND SENT TO THE LAB.
[2020-04-25 19:38] LABS: ALANINE AMINOTRANSFERASE 65 U/L (12-78); ALBUMIN 4.1 g/dL (3.4-5.0); ALCOHOL, BLOOD 140 mg/dL (0-0); ALKALINE PHOSPHATASE 71 U/L (46-116); ASPARTATE AMINOTRANSFERASE 72 U/L (15-37); BILIRUBIN,DIRECT 0.2 mg/dL (0.0-0.2); BILIRUBIN,TOTAL 0.7 mg/dL (0.2-1.0); CALCIUM, SERUM 8.5 mg/dL (8.5-10.1); CARBON DIOXIDE 25 mmol/L (21-32); CHLORIDE 95 mmol/L (98-107); CREATININE 0.8 mg/dL (0.6-1.3); GLUCOSE 258 mg/dL (74-106); POTASSIUM 3.1 mmol/L (3.5-5.1); SODIUM SERUM 136 mmol/L (136-145); UREA NITROGEN, BLOOD 9 mg/dL (7-18)
[2020-04-25 19:39] LABS: ACETAMINOPHEN < 2 ug/ml (10-30)
[2020-04-25] MEDS ORDERED: POTASSIUM CHLORIDE 20 MEQ TAB.PRT.SR PO ONE ×2 (20:00→20:01)
--- NOTE | 2020-04-25 20:03 | NUR ---
MEDICATED PER ERMD ORDER, PT ETTA WELL. PT CALM & COOPERATIVE, NAD NOTED AT THIS TIME. SITTER AT BS.
[2020-04-25 20:22] LABS: BILIRUBIN,URINE NEGATIVE (NEGATIVE); COLOR,URINE YELLOW (YELLOW); LEUKOCYTE ESTERASE ,URINE NEGATIVE (NEGATIVE); NITRITE, URINE NEGATIVE (NEGATIVE); PROTEIN,URINE 100 mg/dl (NEGATIVE); UGLUCOSE >=1000 mg/dL (NEGATIVE); UROBILINOGEN,URINE 0.2 EU/dL (0.2)
[2020-04-25 20:49] LABS: BACTERIA,URINE Few /HPF (None Seen); RBC,URINE 0-2 /HPF (0-2); SQUAMOUS EPITHELIAL CELL,UR Rare /HPF (None Seen); WBC,URINE 0-2 /HPF (0-3)
--- NOTE | 2020-04-25 22:21 | NUR ---
PT SITTING UP, CALM & COOPERATIVE, NAD NOTED AT THIS TIME. WILL CONT TO MONITOR.
--- NOTE | 2020-04-25 23:38 | NUR ---
FACESHEET AND CLINICALS FAXED TO [facility].
--- NOTE | 2020-04-25 23:46 | NUR ---
SPOKE TO THE PT IN [facility]. PT DENIED SI. HE'S HAVING AN APPOINTMENT WITH HIS PSYCHIATRIC, WHO'S COMING BACK FROM A MEDICAL LEAVE, IN AM AND ALREADY HAS A PRESCRIPTION FOR ABILIFY AND LEXAPRO. HE'S REQUESTING ATIVAN AND REPORTED HE WILL LEAVE THE HOSPITAL SOON HE FEELS BETTER. MADE AWARE W/ A NEW ORDER FOR ATIVAN 2MG PO ONCE. NOTED,
[2020-04-25] MEDS ORDERED: LORAZEPAM 1 MG TABLET ONE (23:53)
[2020-04-26] MEDS ORDERED: LORAZEPAM 1 MG TABLET PO ONE
--- NOTE | 2020-04-26 05:27 | NUR ---
PT A, OX4. REPORTED FEELING BETTER AND WILLING TO LEAVE. DENIED SI/HI. MD MADE AWARE, PT IS MEDICALLY STABLE FOR D/C PER MD. Patient discharged to home in stable condition. Written and verbal after care instructions given. Patient verbalizes understanding of instruction. pt was picked up by his CG.
[2020-04-26 05:50] VITALS: BP 121/75
== END 2020-04-26 05:51 | disposition home or self-care (01) ==
LOC: ER 18:27
DX: R45.851 Suicidal ideations (principal); E87.6 Hypokalemia; Z20.822 Contact with and (suspected) exposure to COVID-19; E11.65 Type 2 diabetes mellitus with hyperglycemia; F11.10 Opioid abuse, uncomplicated; F13.10 Sedative, hypnotic or anxiolytic abuse, uncomplicated; F10.129 Alcohol abuse with intoxication, unspecified; Y90.6 Blood alcohol level of 120-199 mg/100 ml; Z79.4 Long term (current) use of insulin
CPT/HCPCS: 36415; 80048; 80076; 80299; 80307; 80320 ×2; 81001; 83735; 85025; 87426; 99285; C9803; G0480

== ENCOUNTER 2023-06-16 11:51 | Emergency (ER) | payer OTHER ==
[~2023-06-16] VITALS: Ht 165.1 cm; Wt 61.7 kg
[2023-06-16 12:01] VITALS: BP 135/62; TEMP 98.4; O2SAT 100
[2023-06-16] MEDS ORDERED: CYCL5TAB PO (14:41)
[2023-06-16] MEDS ORDERED: IBUP-1955 PO (14:41)
== END 2023-06-16 14:46 | disposition home or self-care (01) ==
LOC: ER 11:55
DX: S16.1XXA Strain of muscle, fascia and tendon at neck level, initial encounter (principal); S20.212A Contusion of left front wall of thorax, initial encounter; S09.8XXA Other specified injuries of head, initial encounter; M25.562 Pain in left knee; M25.552 Pain in left hip; M25.512 Pain in left shoulder; E11.9 Type 2 diabetes mellitus without complications; Z79.899 Other long term (current) drug therapy; Z60.2 Problems related to living alone; V89.2XXA Person injured in unspecified motor-vehicle accident, traffic, initial encounter; Y93.89 Activity, other specified; Y92.89 Other specified places as the place of occurrence of the external cause; Y99.8 Other external cause status
CPT/HCPCS: 70450-TC; 71100-TC; 72125-TC; 73030-TC; 73502; 73564-TC

== ENCOUNTER 2024-02-12 19:08 | Emergency (ER) | payer OTHER ==
[~2024-02-12] VITALS: Ht 165.1 cm; Wt 81.2 kg
[~2024-02-12 19:08] MED LIST changes: +CYCL5TAB PO; +IBUP-1955 PO
[2024-02-12 23:42] VITALS: BP 130/75; TEMP 98.4; O2SAT 97
== END 2024-02-12 23:43 | disposition home or self-care (01) ==
LOC: ER 19:09
DX: M79.672 Pain in left foot (principal); E11.9 Type 2 diabetes mellitus without complications; Z79.899 Other long term (current) drug therapy; Z60.2 Problems related to living alone
CPT/HCPCS: 73630-TC